=== PATIENT | female | born 1985 | race Caucasian/White ===

== ENCOUNTER 2018-08-19 16:38 | Emergency (ER) | payer BC ==
[~2018-08-19] VITALS: Ht 167.6 cm; Wt 136.1 kg
[~2018-08-19 16:38] MED LIST: ACETAMINOPHEN-1 EAC1 PO; BIRTH CONTROL PILL; CIPRO500 MG PO; CIPROFLOXACIN500 M3 OR; FLAGYL500 MG PO; FLEXERIL PO; HYDROCODONE-AP1 EAC6 PO; IBUPROFEN 800800 M1 OR; IBUPROFEN 800800 M1 PO; MACRODANTIN100 MG; NEXIUM40 MG PO; NOHOMEMEDICATIONS; NORCO 5-325 TA1 EACH PO; NORFLEX100 MG PO; PRENATAL; TORADOL 10 MG T10 MG PO; ULTRAM 50MG TAB50 MG PO; VICODIN ES TAB1 EACH OR; ZOFRAN 4 MG ORAL4 MG PO; ZOFRAN4 MG PO
[2018-08-19] MEDS ORDERED: SINGULAIR 10 MG10 M1 PO (16:53)
[2018-08-19] MEDS ORDERED: PREDNISONE 10 M10 MG PO (16:53)
[2018-08-19] MEDS ORDERED: IBUPROFEN 800800 M1 PO (18:13)
[2018-08-19 18:28] VITALS: BP 128/78
== END 2018-08-19 18:34 | disposition home or self-care (01) ==
LOC: M.ERS 16:38
DX: S80.211A Abrasion, right knee, initial encounter (principal); W00.0XXA Fall on same level due to ice and snow, initial encounter; Y93.89 Activity, other specified; Y92.89 Other specified places as the place of occurrence of the external cause; Y99.8 Other external cause status; Z85.41 Personal history of malignant neoplasm of cervix uteri; E66.01 Morbid (severe) obesity due to excess calories; Z68.42 Body mass index [BMI] 45.0-49.9, adult; Z90.49 Acquired absence of other specified parts of digestive tract

== ENCOUNTER → 2018-08-27 | Outpatient (CLI) | payer BC ==
[~2018-08-27] MED LIST changes: +PREDNISONE 10 M10 MG PO; +SINGULAIR 10 MG10 M1 PO
== END ==
LOC: M.MRI 07:30
DX: S83.094A Other dislocation of right patella, initial encounter (principal); W19.XXXA Unspecified fall, initial encounter; Y93.89 Activity, other specified; Y92.89 Other specified places as the place of occurrence of the external cause; Y99.8 Other external cause status

== ENCOUNTER 2018-12-15 13:18 | Emergency (ER) | payer BC ==
[~2018-12-15] VITALS: Ht 167.6 cm; Wt 145.2 kg
[2018-12-15 14:53] LABS: URINE BILIRUBIN NEGATIVE (Negative); URINE BLOOD NEGATIVE (Negative); URINE CLARITY CLEAR; URINE COLOR YELLOW; URINE GLUCOSE-RANDOM NEGATIVE (Negative); URINE KETONES NEGATIVE (Negative); URINE LEUKOCYTES-REFLEX 1+ (Negative); URINE NITRITE-REFLEX NEGATIVE (Negative); URINE PROTEIN NEGATIVE (Negative); URINE UROBILINOGEN 0.2 E.U./dl (0.2-1.0)
[2018-12-15 15:04] LABS: INFLUENZA B ANTIGEN None Detected (None Detect)
[2018-12-15 15:06] LABS: ABSOLUTE EOSINOPHILS 0.1 thou/uL (0.0-0.7); ABSOLUTE LYMPHOCYTES 1.4 thou/uL (0.8-5.3); ABSOLUTE MONOCYTES 0.8 thou/uL (0.0-1.2); ABSOLUTE NEUTROPHILS 4.8 thou/uL (1.6-8.1); BASOPHILS 0.6 %; EOSINOPHILS 1.1 %; HEMOGLOBIN 12.5 gm/dL (12.0-15.0); LYMPHOCYTES 20.2 %; MCH 28.5 pg (26.0-34.0); MCHC 33.9 g/dL (28.0-37.0); MCV 84.2 fL (80.0-100.0); MONOCYTES 11.3 %; MPV 8.5 fl. (7.2-11.1); NUCLEATED RBCS 0 /100WBC; PLATELET COUNT* 305 thou/uL (150-400); POLYS 66.8 %; RDW-CV 13.9 % (10.5-14.5); WBC 7.2 thou/uL (4.0-11.0)
[2018-12-15 15:13] LABS: SQUAMOUS >10 Many /LPF (0-3)
[2018-12-15 15:14] LABS: URINE RBC 0-2 Rare /HPF (0-2); URINE WBC-REFLEX 0-5 Rare /HPF (0-5)
[2018-12-15 15:15] LABS: CASTS None Seen /LPF (None Seen); CRYSTALS None Seen /LPF (None Seen); MUCUS 4-6 Moderate strn/LPF (None Seen)
[2018-12-15 15:17] LABS: ALBUMIN 3.5 g/dL (3.4-5.0); CALCIUM 8.4 mg/dL (8.5-10.1); CREATININE 0.9 mg/dL (0.6-1.3); POTASSIUM 3.2 mmol/L (3.5-5.1); TOTAL BILIRUBIN 0.3 mg/dL (<0.1-1.0); TOTAL PROTEIN 7.4 g/dL (6.4-8.2)
[2018-12-15] MEDS ORDERED: BACTRIM DS TAB1 EACH PO (15:58)
[2018-12-15] MEDS ORDERED: OSELB75 PO (15:58)
[2018-12-15] MEDS ORDERED: NAPROSYN500 MG PO (15:58)
[2018-12-15] MEDS ORDERED: FLEXERIL PO (15:58)
[2018-12-15 16:21] VITALS: BP 138/96
--- NOTE | 2018-12-16 12:13 | EKG ---
[place] [address] ELECTROCARDIOGRAM REPORT Name: RUPINDER REILLY Room: [facility]#: [id number] Admission: 12/15/18 Attend Phys: Discharge: 12/15/18 Date of : 81 Report #: [id number] THIS REPORT FOR: //name// [facility] ED Test Date: 2018-12-15 Test Time: 15:01:58 Pat Name: RUPINDER REILLY Department: Room: Gender: F Turner Machine: GINNA : 1985 Requested By: Samantha Jeffery Order Number: [id number] MD: Cain Lopez Measurements Intervals [place] Rate: 89 P: 27 MT: 150 QRS: 57 QRSD: 86 T: 15 QT: 337 QTc: 410 Interpretive Statements Sinus rhythm No previous ECG available for comparison Electronically Signed On 12-16-2018 12:13:31 CDT by Cain Lopez [email or web address] <ELECTRONICALLY SIGNED> By: Cain Lopez MD, [facility] 12/16/18 1213 1501 1501 Cain Lopez MD, FACC /EPI
== END 2018-12-15 16:23 | disposition home or self-care (01) ==
LOC: M.ERS 13:18
PROVIDERS: Nurse Practitioner Family
DX: J11.1 Influenza due to unidentified influenza virus with other respiratory manifestations (principal); N39.0 Urinary tract infection, site not specified; E66.01 Morbid (severe) obesity due to excess calories; Z68.43 Body mass index [BMI] 50.0-59.9, adult; Z85.41 Personal history of malignant neoplasm of cervix uteri; Z90.49 Acquired absence of other specified parts of digestive tract